=== PATIENT | male | born 2000 | race Caucasian/White ===

== ENCOUNTER 2023-02-10 08:00 | Outpatient (RCR) | payer OTHER, SELFPAY ==
--- NOTE | 2023-02-10 09:45 | BH.NA ---
Physical Data Vital Signs Pulse Rate: 78 Blood Pressure: 149/96 Height/Weight Height: 1.8 m Weight:: 136.078 kg Weight in Pounds: 300.0 lbs Nutritional History Appetite Nutritional Instructions: Describe your appetite:: Good Additional nutritional information:: Client denies change in appetite. Functional Assessment Sleep Pattern Describe any problems with sleeping: Client states he sleeps about 5-6 hours per night. Sensory/Communication Assess Vision Problems Do you have any vision problems?: Glasses Communication Problems Do you have difficulty understanding what people are saying?: No Medical Problems/History Respiratory Conditions Respiratory: Asthma Neurological Conditions Neurological: Other (See comments) (sleep paralysis- states he has had this since high school, stating he has a minor event about once every 3 months that he is able to get himself out of, states he has a minor event during sleep about twice a year) Gastrointestinal Conditions Gastrointestinal: Other (See comments) (acid reflux) Pain Assessment Do you have acute or chronic pain?: No Surgical History Surgical History Have you had any surgeries? If so, list type and date:: Yes (adenoidectomy as a child) Substance Abuse Substance Abuse Please describe substance abuse in the last 30 days:: Client states he has been sober from alcohol for 2 weeks now, stating prior to that he had been drinking alcohol several times per week for several months. Client states he occasionally vapes nicotine. Client denies drug use. Client states he drinks about 4-5 caffeinated drinks per day, coffee/pop and at times energy drinks. Discussed with client the need to lower his caffeine intake. Mental Status Summary Mental Status Significant Findings/Observations on Appearance and Mood:: Client is alert and oriented x 4. Client is casually groomed. Client is cooperative with assessment. Client has fair eye contact. Client's voice has normal rate and volume. Client has appropriate affect. Client makes logical associations and has normal processing. Client denies delusions/hallucinations. Client reports ongoing SI and states I have a safety plan in place, I have safety set up for any methods I could think of. Suicide Assessment Suicidal Ideation Are you currently or have you been suicidal in the past?: Yes Suicidal Intentional Rating Scale (SIRS): Current suicidal thoughts/No plan/Contracts for safety Physician Notification Past Psychiatric History MH Treatment Hx Past Psychiatric Medications:: Celexa- was on for 1 year about 4 years ago Age of first mental health symptoms: Client states he has felt depressed and suicidal all my life growing up in a [employer] cult. Client states he took medication for depression around age [age] for one year. Describe (age, circumstance, etc) any past hospitalizations: None. Client does state about 4 years ago, he had a plan to go into [place] to [place] himself but was stopped when he tried cigarettes that made him sick to his stomach so he went home. Current providers for mental health treatment (counselor, psychiatrist, director case management, etc.): None. Fall Risk Assessment Age Age: Less than 60 Mental Status Mental Status: Willing & able to ask for assistance when needed Physical Status Physical Status: No problems Impairments Impairments: None Elimination Elimination: Continent AND independent Gait or Balance Gait or Balance: Walks independently Hx of Falls History of falls in the past 6 months: No known history Medications/Substances Medications/substances used within the past 24 hours or ordered to administer: None of the medications/substances list above Total Score Total Points:: 0 RN Summary of Impressions Impressions Recommendations Impressions: Psychiatric Issues: 1. Major depressive disorder, recurrent, severe without psychosis 2. Generalized anxiety disorder 3. Social anxiety disorder (F40.11) 4. Rule out high functioning pervasive development disorder 5. Primary support issues 6. Rule out alcohol use disorder (sober from alcohol for 2 weeks) Impression: General Medical Conditions: Discussed BP 149/96 with client. Client states he is planning to follow up with his PCP soon because he hasn't been seen in awhile and states he will follow up with them about his BP. Level of Care How do the client's current symptoms and functional deficits support need for this level of care?: Client was referred to IOP by his mother for mood instability and suicidal ideations. Client states him and his mother left the [employer] about 2 years ago. Client states much of his mental health decline has to do with his previous alevism experience, stating he did not have friends as a kid and was bullied and not able to have his own identity within the [employer]. Client states he has not wanted to be alive for as long as I can remember. Client reports he has a safety contract regarding suicidal thoughts. Client states his mom is his biggest support. Client reports crying episodes, isolation, decreased concentration, and self-harming in the form of hitting himself. IOP will promote gains and prevent further decompensation while providing social support and skills training.
[2023-02-10 11:00] VITALS: BP 149/96; PULSE 78
--- NOTE | 2023-02-10 11:10 | BH.SGPN.GN ---
Behaviors/Verbalizations/Mental Status: [] Eye contact is good. Motor activity is appropriate. Appearance is casual. Speech is Appropriate. Mood is anxious. Affect is congruent. Thoughts are linear and logical. No evidence of psychosis. Client Response/Progress/Benefit: [] Pt was an active participant in group discussions. Attentive during psychoeducation. In small group pt along with peers developed an active plan for their crisis warning signs. Pt identified three crisis warning signs as well as an action plan for each. One crisis warning sign is not engaging in self-care with an actions plan that involved: change clothes, eat a healthy snack, set limits on avoidance behavior, and hold self accountable. Other warning sign was isolation with an action plan that involved: calling friends, ask for help, get out of the house, and engage in a hobby. Benefited from increased awareness of crisis warning signs and by developing crisis intervention strategies. Will continue in IOP to improve daily functioning, increase healthy coping skills, and prevent decompensation.
--- NOTE | 2023-02-10 12:22 | BH.PSY.EVA_ITS ---
Psychiatric Evaluation Initial Evaluation Initial Evaluation: History of Present Illness: [] The patient is a 22-year-old single male with a history of depression, anxiety and sleep paralysis who was referred to the [facility] behavioral health IOP by his mother for worsening symptoms of depression and anxiety. The patient currently lives with his mother and father and gets along okay with them. Mom was present for his initial intake and stated that the family feels that the patient has high functioning autism. The patient states that his mental health symptoms have worsened in the past several years and he feels he has really been depressed most of his life. His symptoms worsened when the family left their [employer] community which the patient feels is a [place] day cult. They were shunted when they left and so he no longer sees most of his father side of the family. The patient states that this community isolated him throughout his childhood and he was treated second class because his father did not really believe in [employer]. Patient states that he was always told that he was not good enough. He currently works at a [employer] for the past year full-time but he is currently seeking [facility] to do the IOP. He had a breakdown 2 weeks ago where he felt outright despair and so decided to do an IOP. For primary support he has his mom and 1 friend. The patient endorses sadness, crying spells, hopelessness, worthlessness. He still enjoys video games and reading. Appetite is okay and weight is stable. His sleep has never been good and had a it has not changed and he sleeps about 6 hours a night and has some initial insomnia. His energy level is low and his concentration is decreased. He endorses guilt, passive thoughts of , severe social anxiety, isolation and constant worry sometimes accompanied by nausea. He denies plan for suicide and admits that a few times a week he may have passive, fleeting suicidal ideation but has no plan. He gave up his 2 guns he own to his mother and he does not know where they are now although he did not come close to thinking about using them. He denies homicidal ideation, hallucinations or delusions or symptoms of bridgett or hypomania ever. He feels he had emotional abuse by the [employer] his whole childhood but denies physical, verbal or other abuse. He also denies panic attacks, OCD, eating disorder or PTSD although he does have some flashbacks and avoidance. He is drinking alcohol more than he used to at 1 bottle of wine 2 days a week and 2 shots a day the other days of the week. Sober from alcohol for 2 weeks. No anger issues or violence ever. Current Psychiatric Medications: [] None Past Psychiatric History: [] No psych admits. No suicide attempts ever. He was has no psych providers now. He was first depressed forever. His first medic ation was Celexa at age 17 and he took it for about 1 year and it helped him somewhat. No other meds ever. He had counseling 1 year ago for few months and it was a little bit helpful. The patient used to self-harm by hitting himself when he was angry but he has not done this for over a year ago and he states he no longer has issues with anger. Substance Use History: [] First used alcohol at age 19 and increase his use 2 months ago to what is noted in the present illness. He has not had any alcohol for the past 2 weeks. No marijuana use and he quit vaping nicotine a few months ago. No drugs and no rehab ever. Allergies: [] No known allergies Medications: [] Omeprazole, [id number] allergy medication, probiotic Past Medical History: [] Asthma, GERD. He had his adenoids out but no other surgeries. Normal sexual function and is heterosexual. Mother is 51 years old and father is 54 years old. He states that his father, grandfather and all the men on my father side have depression. No completed suicides in the family. Maternal uncle is alcoholic and his father side has some alcoholism on it but he is unsure where. Family Psychiatric History: [] See above Personal/Social History: [] He was born and raised in [place] and describes his childhood as I was loved by my mom, emotionally neglected by my dad and ostracized by the [employer] community for not being good enough. He states he was ostracized due to his anxiety issues and social anxiety issues. He has no siblings and was an only child. He denies any physical or sexual abuse ever. He felt isolated at school and was bullied at school and did not try in school. He graduated high school but no college. 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 He identifies as heterosexual and was engaged at age 17 to a girlfriend that he had had for many many years in childhood but she cheated on him with someone else and then spread bad rumors about him in the [employer] community. Legal History: [] No arrests. Has [place] a driver's license. No DUIs. Review of Systems: [] Negative except as noted in the present illness except for occasional reflux from GERD. Vital signs reviewed in the records and in the nurses notes and updated and the patient is deemed medically able to participate in the IOP program. Vital Signs: [] See above Mental Status Examination: [] The patient is a 22-year-old male who is overweight and seen wearing glasses in a stocking And a long gomes. He appears otherwise normal for stated age and is ambulatory with a normal gait. He has no psychomotor agitation or retardation. He is cooperative during the interview but at times has a longer response latency and takes his time to find the answer to the question. Eye contact is decreased often when he is thinking but at times he does make good eye contact. Speech is normal rate and rhythm and fluent with no pressure. Mood is depressed. Affect is constricted to flat. Thought process is goal-directed and organized. Thought content: There is evidence of passive thoughts of and fleeting, passive suicidal ideation on occasion. There is no evidence of plan for suicide, active suicidal ideation, homicidal ideation, hallucinations or delusions. Reality testing is intact. Intelligence is average. Judgment is intact. Insight: Limited but some present. Impulsivity moderate. Laboratory was suggested to be ordered in terms of thyroid and vitamin D but patient has a fear of blood and needle sticks and will think about getting it. The order for the labs was given. Diagnoses: [] 1. Major depressive disorder, recurrent, severe without psychosis 2. Generalized anxiety disorder 3. Social anxiety disorder (F40.11) 4. Rule out high functioning pervasive development disorder 5. Primary support issues 6. Rule out alcohol use disorder (sober from alcohol for 2 weeks) Plan: [] The patient will start the IOP program as the structure, support, education, and group therapy will hopefully prevent worsening of the patient's symptoms that could require hospitalization. He felt safe during the interview and if it anytime he does not feel safe he will let us know or go to the emergency room. Patient is encouraged to decrease alcohol use and stay sober. The patient does not wish to take Celexa again and he agrees to try Trental X and prescription is sent in for this. In addition labs were ordered but the patient is unsure if he will get it as he has a fear of blood and needles. I will see the patient in follow-up in 2 weeks and he will continue to follow-up with his outpatient providers.
--- NOTE | 2023-02-10 12:36 | BH.DR.ITP ---
Initial Treatment Plan Patient Information Visit Information: ADMISSION DATE: EXPECTED LOS: 4-6 weeks Problems/Symptoms Problem #1:: Depression Symptom:: Sadness, hopelessness, worthlessness, low energy, decreased concentration, guilt, passive thoughts of , passive, fleeting suicidal ideation Problem #2:: Anxiety Symptom:: Worry, isolation, avoidance, flashbacks
--- NOTE | 2023-02-10 14:33 | BH.COMM_ITS ---
Communication Note Communication with Client Communication Note: Met with pt to complete initial paperwork. Pt reports no changes since intake assessment. Completed the CSSR-S screening and risk assessment with pt. Hx of one interrupted attempt in which pt had planned to shoot himself in the [place]; however, stopped himself and went home before retrieving his firearm. Hx of chronic passive suicidal thoughts with know specific plan or intent. Shared these are nearly everyday. Pt reports he has given his firearms to his mother and is not aware of where they are. Denies access to other lethal means. Discussed case with Dr. Edwards and pt will be admitted to [facility] level of care with diagnosis of MDD F32.2
--- NOTE | 2023-02-10 14:40 | BH.COMM ---
Communication Note Communication with Client Communication Note: This nurse attempted to get prior authorization for [facility]intell[facility] medication. Information was needed for three medication trials and failures/intolerances for prior authorization, but client has only trialed one medication on list. Discussed with Dr. Daniel and discussed medication replacements and telephone order received for Lexapro 10mg by mouth daily (take 5mg for 3 days and then 10mg per day). [facility] in [place]. This nurse called client at this time to update him on change of medication and instructions for use of Lexapro. Client denied questions at this time.
--- NOTE | 2023-02-11 10:15 | BH.SGPN.GN ---
Behaviors/Verbalizations/Mental Status: []Pt alert and oriented, casually dressed and groomed. Eye contact good. Motor activity appropriate. Speech within normal limits. Affect congruent, mood content and anxious. Thoughts linear, logical, no signs of hallucinations or delusions. Client Response/Progress/Benefit: []Pt was an active participant in group discussions and activity. Attentive during psychoeducation. Pt along with peers were able to identify several negatives on the picture given to the group. Pt and peers also identified positives in the picture and made the connection that finding positives is much more difficult. Interactive discussion on the definition of perspective, how perspective is formed, and why perspective is important in treatment. Pt along with peers also identified that perspective can either motivate and encourage treatment or be a barrier to receiving help. Pt shared today his perspective is more hopeful and optimistic, with some self-doubt as he is new to the IOP tx setting. Pt stated his current perspective is helping him to focus on the importance of addressing his mental health needs and have an open mind going into the therapeutic setting. Will continue IOP tx to enhance coping skill repertoire, improve mood stability, and prevent decompensation. Narrative Note: []
--- NOTE | 2023-02-11 11:17 | BH.SGPN.GN ---
Behaviors/Verbalizations/Mental Status: []Pt alert and oriented, casually dressed and groomed. Eye contact good. Motor activity appropriate. Speech within normal limits. Affect congruent, mood euthymic and anxious. Thoughts linear, logical, no signs of hallucinations or delusions. Client Response/Progress/Benefit: []Pt was attentive and contributed to small group discussion. Pt completed strengths exploration worksheet, identifying creativity, intelligence, and open-mindedness as personal strengths. Pt able to acknowledge how these strengths are helping pt and can continue to help pt in mental health journey. Pt worked with group to identify strategies that can help increase utilization of personal strengths and how to challenge one?s perspective in general. Pt identified wanting to work on look at past accomplishments and moments of resilience to help challenge perspective. Benefited from identifying personal strengths and strategies for enhancing use of identified strengths. Pt to continue IOP tx to promote mood stability, improve daily functioning, and prevent decompensation. ? Narrative Note: []
--- NOTE | 2023-02-11 15:10 | BH.MTP_ITS ---
Master Treatment Plan Patient Information Program Physician:: Dr. Daniel Primary Therapist:: Rosina Moreno, [facility] Psychiatric Diagnoses Psychiatric Diagnoses:: 1. Major depressive disorder, recurrent, severe without psychosis F33.2 2. Generalized anxiety disorder 3. Social anxiety disorder (F40.11) 4. Rule out high functioning pervasive development disorder 5. Primary support issues 6. Rule out alcohol use disorder (sober from alcohol for 2 weeks) Diagnosis Code(s):: F33.2 Estimated LOS Estimated LOS (in weeks):: 6 Problem/Goal #1 Problem/Goal #1 Stated Goal:: Client will reduce depression, feelings of hopelessness, and passive thoughts of . Description of Barriers: Potential barriers include: negative thought patterns, low self worth, low motivation, apathy, and anxious thoughts. Functional Impact: The patient is a 22-year-old single male with a history of depression, anxiety and sleep paralysis who was referred to the [facility] behavioral health IOP by his mother for worsening symptoms of depression and anxiety. Mom was present for his initial intake and stated that the family feels that the patient has high functioning autism. The patient states that his mental health symptoms have worsened in the past several years and he feels he has really been depressed most of his life. His symptoms worsened when the family left their [employer] community which the patient feels is a [place] day cult. They were shunted when they left and so he no longer sees most of his father side of the family. Pt identifies traumatic memories from his time in [employer]. Pt reported having a ?breakdown? two weeks ago where he felt despair and felt like he needed higher level of care due to having passive thoughts of . Currently seeking FMLA from work. The patient endorses sadness, crying spells, hopelessness, worthlessness, guilt, passive thoughts of , severe social anxiety, isolation, and constant worry. Goal Relevant Strengths/Supports: Resilient and willingness to learn. Supportive parents. Objectives Objective #1: Stated Objective: Client will learn and utilize 2-3 healthy coping strategies to manage depressive symptoms. Interventions: Therapist will utilize CBT techniques to assist client with understanding the connection between thoughts, feelings and behaviors. Education will be provided on behavioral activation. Therapist will assist client in learning internal coping strategies to manage depressive symptoms, along with helping client identify triggers. Discharge Criteria: Client will have achieved this goal when can verbalize and has practiced at least 2 healthy coping strategies that successfully manage depressive symptoms. Target Date: 03/24/23 Review Date: 03/10/23 Objective #2: Stated Objective: Identify at least 2-3 negative self-talk messages used to reinforce feelings of worthlessness and replace thoughts with positive messages. Interventions: Therapist will help client identify distorted, negative beliefs about self and replace with more realistic, affirmative messages. Discharge Criteria: Client will have achieved this goal when can verbalize at least 2 negative self-talk messages and effectively replace those thoughts with affirmative messages. Target Date: 03/24/23 Review Date: 03/10/23 Problem/Goal #2 Problem/Goal #2 Stated Goal:: Stabilize anxiety level while increasing ability to function on daily basis. Description of Barriers: Potential barriers include: negative thought patterns, low self worth, low motivation, apathy, and anxious thoughts. Functional Impact: The patient is a 22-year-old single male with a history of depression, anxiety and sleep paralysis who was referred to the [facility] behavioral health IOP by his mother for worsening symptoms of depression and anxiety. Mom was present for his initial intake and stated that the family feels that the patient has high functioning autism. The patient states that his mental health symptoms have worsened in the past several years and he feels he has really been depressed most of his life. His symptoms worsened when the family left their [employer] community which the patient feels is a [employer] [place] day cult. They were shunted when they left and so he no longer sees most of his father side of the family. Pt identifies traumatic memories from his time in [employer]. Pt reported having a ?breakdown? two weeks ago where he felt despair and felt like he needed higher level of care due to having passive thoughts of . Currently seeking FMLA from work. The patient endorses sadness, crying spells, hopelessness, worthlessness, guilt, passive thoughts of , severe social anxiety, isolation, and constant worry. Goal Relevant Strengths/Supports: Resilient and willingness to learn. Supportive parents. Objectives Objective #1: Stated Objective: Client will learn and implement 2-3 calming skills to help manage anxiety symptoms. Interventions: Therapist and group sessions will help client identify physiological warning signs of anxiety, increase awareness of thoughts that increase anxiety, and identify behaviors that reinforce anxious symptoms. Group and individual counseling will teach client calming skills to help manage anxious symptoms. Discharge Criteria: Client will have achieved this goal when can verbalize at least 2 calming skills and reports skills successfully help reduce anxious symptoms. Target Date: 03/24/23 Review Date: 03/10/23 Objective #2: Stated Objective: Verbalize an understanding of the role that cognitive distortions play in excessive irrational worry and persistent anxiety symptoms. Interventions: Therapist and group will provide psychoeducation about distorted thought patterns. Will assist client in analyzing his worries by examining potential distortions and helping client learn how to reframe and/or identify probability of negative expectation occurring. Discharge Criteria: Client will have met this objective when can verbalize at least 2 anxious distortions/biases and reports ability to challenge/reframe thoughts. Target Date: 03/24/23 Review Date: 03/10/23
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
--- NOTE | 2023-02-12 09:05 | BH.SGPN.GN ---
Behaviors/Verbalizations/Mental Status: [] Eye contact is good. Motor activity is appropriate. Appearance is casual. Speech is Appropriate. Mood is anxious. Affect is congruent. Thoughts are linear and logical. No evidence of psychosis. Reviewed daily check in sheet and pt reports 1/5 for suicidal ideations and 0/5 for intent. Client Response/Progress/Benefit: [] pt participated at times during the group discussion. Attentive. Emotion for today is ?on edge and exhausted?. Daily symptom tracker notes 4/5 for anxiety and 1/5 for depression. Mental health win for today is ?getting here?. Decreased motivation due to depression which makes getting up and completing tasks very difficult. Has been primarily managing his mood by isolation. He shared that he spent most of his like ?in a cult? and this significantly impacted her self-esteem and confidence in himself leading to depression and social anxiety. Group was supportive which was beneficial. Limited progress noted however this is pt?s first week in IOP. Will continue in IOP to maintain safety, stabilize mood, increase healthy coping, and prevent decompensation. Narrative Note: []
--- NOTE | 2023-02-12 10:10 | BH.SGPN.GN ---
Behaviors/Verbalizations/Mental Status: []Eye contact is fair. Motor activity is appropriate. Appearance is casual. Speech is Appropriate. Mood is anxious and dysthymic. Affect is congruent. Thoughts are linear and logical. No evidence of psychosis. Client Response/Progress/Benefit: []Pt participated during the group discussion. Attentive during psychoeducation and actively engaged during experiential activity. Participated during interactive discussion on aspects of fixed mindset. Group identified several aspects of fixed mindset which include: inflexible, belief that one cannot grow, absolute thinking, and all of one's skills, traits, and behaviors can't change. Group identified personal examples of fixed thinking in which pt shared personal fixed thoughts as: I won't find anyone else, I'm broken, and things will never change. Benefited from increased understanding of personal fixed mindsets and how they can impact mental health. Will continue in IOP to improve self-worth, increase healthy coping skills, and prevent decompensation.
--- NOTE | 2023-02-12 11:15 | BH.SGPN.GN ---
Behaviors/Verbalizations/Mental Status: []Pt alert and oriented, disheveled appearance. Eye contact good. Motor activity appropriate. Speech within normal limits. Affect congruent, mood euthymic. Thoughts linear, logical, no signs of hallucinations or delusions. Client Response/Progress/Benefit: []Pt was an active participant during activity and discussion AEB providing some input, connecting with peers, as well as taking notes throughout. Pt did well to engage as group worked on identifying characteristics and benefits of adopting a growth mindset. Worked with fellow participants in reframing the example fixed thoughts into growth mindset thoughts. Pt worked on changing own fixed thought of ?I'll get in trouble if I try new things? to growth thought of ?I'm not going to get ostracized for doing new things, it's okay to try.? Benefitted from discussing benefits of growth mindset and brainstorming strategies for prompting growth-mindset. Pt appeared to benefit from working in small groups to challenge own thoughts and help peers. Pt will continue IOP tx to prevent decompensation, increase self-confidence, and combat distorted thinking patterns. Narrative Note: []
--- NOTE | 2023-02-17 09:00 | BH.SGPN.GN ---
Behaviors/Verbalizations/Mental Status: [Patient was alert and oriented, appropriately dressed and groomed. Eye contact was good, motor activity normal, speech within normal limits. Affect congruent, mood lethargic. Thoughts linear, logical, no signs of hallucinations or delusions. Reviewed Patients symptom tracker and the patient reports low in agitation/irritability/anger, moderate in depressed mood and thoughts of suicide, and moderate/severe for anxiety/panic attacks. This is within normal limits for the patient. The patient reports there being no risk in self-harm urges/behaviors or in actual risk of suicide.] Client Response/Progress/Benefit: [Patient was engaged and open to the discussion. Patient reported his mood to be ?Exhausted?. Patient shared his first mental health win is that he went to a wedding over the weekend which is huge for him. He stated he normally is not one to go to big functions like this and it made it harder because he is not close to this side of the family. He stated his mother was a big support. The patient describes his second win is that he is not isolating like he normally does even with all of the pressure he is feeling. The patient said that he wants to feel better therefore he stated he plans to put effort in his mental health treatment. The patient?s stressor is coming to IOP because of it not being in his normal routine and it?s taking him out of his comfort zone. Patient was quiet but actively listened to other members and benefited from the communication in group. Patient will continue with IOP treatment to help develop healthy skills, promote mood stability, and improve distress tolerance.] Narrative Note: []
--- NOTE | 2023-02-17 10:00 | BH.SGPN.GN ---
Behaviors/Verbalizations/Mental Status: [] Eye contact is good. Motor activity is appropriate. Appearance is casual. Speech is Appropriate. Mood is euthymic. Affect is congruent. Thoughts are linear and logical. No evidence of psychosis. Client Response/Progress/Benefit: []Pt engaged participant AEB listening to others, engaging in activity, and providing feedback at times. Attentive during psychoeducation and provided insight into obstacles in the way of mental wellness. Pt shared with group current mental health reality and desired mental health reality. Stated coming to IOP, trying new things, and being open minded as steps he is currently making to get closer to desired reality. Identified barriers to desired reality include: anxiety, past trauma, and low self-worth. Benefited from taking look at current mental health state and obstacles for progress. Pt to continue IOP to improve daily functioning, increase healthy coping, and prevent decompensation.
--- NOTE | 2023-02-17 11:05 | BH.SGPN.GN ---
Behaviors/Verbalizations/Mental Status: []Pt alert and oriented, casually dressed and groomed. Eye contact good. Motor activity appropriate. Speech within normal limits. Affect congruent, mood euthymic. Thoughts linear, logical, no signs of hallucinations or delusions. Client Response/Progress/Benefit: [] Pt was an active participant in group discussions and experiential activity. Attentive during psychoeducation. Pt participated during interactive discussion on strategies to overcome several obstacles to mental wellness including physical anxiety symptoms, PTSD, low self-esteem, and ?little identity.? Pt choose the barrier of low self-worth? to work on this week and identified strategies to incorporate including by challenging myself to look at my good qualities. Benefited from increased awareness of obstacles to mental wellness and strategies to help overcome those obstacles. Will continue in IOP tx to prevent decompensation, increase emotional regulation skills, and improve daily functioning. Narrative Note: []
--- NOTE | 2023-02-19 09:00 | BH.SGPN.GN ---
Behaviors/Verbalizations/Mental Status: [] Eye contact is good. Motor activity is appropriate. Appearance is casual. Speech is Appropriate. Mood is euthymic. Affect is congruent. Thoughts are linear and logical. No evidence of psychosis. Reviewed daily check in sheet and no reports of suicidal ideations or intent. Client Response/Progress/Benefit: [] Pt participated at times during the group discussion. Attentive. Client reported mental health positive as able to get sleep yesterday and relax. Client reported additional mental positive as taking time to appreciate the small things and appreciating other people. Client noted stressor was being sick yesterday but is feeling happy that he is starting to feel better today. Progress noted with improved mood and perspective.. Benefited from group support, encouragement, and feedback. Will continue in IOP to prevent decompensation, build confidence, continue to use healthy coping skills, and improve daily functioning.
--- NOTE | 2023-02-19 09:00 | BH.SGPN.GN ---
Behaviors/Verbalizations/Mental Status: [Patient was alert and oriented, casually dressed and groomed. Eye contact was good, motor activity normal, speech within normal limits. Affect congruent, mood content. Thoughts linear, logical, no signs of hallucinations or delusions. Reviewed Patients symptom tracker and the patient rates all categories within normal limits.] Client Response/Progress/Benefit: [Patient was engaged and open to the discussion. Patient reports his mood to be ?relieved?. Patients first win was that he got to ?finally get some rest?. Patient explained that he does not sleep well in general but has worsened since he had a ?mental break? a few weeks ago. The second win was he took the time to reflect on the positive small things in his life. The patient stated these were things like his bonds with part of his family and his cat. The patient stated his stressor was his stomach gurgling. He was sick the past few days and was nervous he may get sick again. Patient reported that he is not that stressed right now. Patient was interactive and respectful with other group members about their mental wins and stressors. Patient benefited from the discussion by listening to feedback and giving input on her peer?s stressors and mental health wins. Patient will continue with IOP treatment to help develop healthy skills, promote mood stability, and improve distress tolerance.] Narrative Note: []
--- NOTE | 2023-02-19 10:15 | BH.SGPN.GN ---
Behaviors/Verbalizations/Mental Status: [] Eye contact is good. Motor activity is appropriate. Appearance is casual. Speech is Appropriate. Mood is anxious. Affect is congruent. Thoughts are linear and logical. No evidence of psychosis. Client Response/Progress/Benefit: [] Pt did not participate in group discussions. Attentive during psychoeducation. Attentive during group discussion on types of support, benefits of support, and obstacles to utilizing support. Pt reports their primary supports are mother, certain friends, and podcasts. 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 Participated in experiential activity and was able to connect this activity to group topic. Benefited from increased awareness of the benefits and importance of maintaining a balanced support system. Will continue in IOP to prevent decompensation, stabilize mood, and increase healthy coping skills. Narrative Note: []
--- NOTE | 2023-02-19 15:00 | BH.MDN ---
Multi-Disciplinary Note Note 45-min Individual: Time Started:: 11:23 Date: 02/19/23 Purpose of session/treatment goals addressed:: Purpose of session was to address goals 1 and 2 from MTP. Eye Contact:: Fair Motor Activity:: Restless Appearance:: Casual Speech:: Appropriate Mood:: Euthymic Affect:: Congruent Thoughts:: Linear, Logical and No evidence of hallucinations/delusions noted Staff Interventions:: thought challenging, CBT techniques, strengths perspective, goal setting and taught coping skills Client Response:: Client reported he did go to his cousin's wedding over the weekend despite feeling anxious. Client stated he was extremely anxious prior to the wedding but with support from his mom he was able to go to the wedding and stated once he was there enjoyed himself. Client stated he's trying to keep up with day-to-day task but struggles with doing things like laundry and other tasks that require too much energy. Client reported continuing to struggle with low motivation and low energy. Client stated he really wants to work on improving his self worth. Connected with education about the importance of identifying what he does like about himself and identifying what he feels confident about. Client stated he does think that he is kind, easy to get along with, and dependable. Client stated he is confident about his writing but recognizes he doesn't engage in that activity in a long time. Identified homework for the weekend to start accomplishment journal which will help him look at what he is doing versus what he's not doing. Client agreed to start getting back into creative writing and wants to take time to recharge and relax. Risks/Concerns:: Denies suicidal ideation, plan, or intention to date. future oriented. Progress Toward Goals/Plan:: Progress noted with client reporting ability to face anxiety by going to his cousins wedding. Client able to use healthy supports to manage anxiety prior to the social event and reported decreased anxiety once at the wedding. Client reports ability to complete some of his day to day tasks, but struggles with bigger chores/tasks due to low motivation and energy. Client receptive to homework. Client to continue IOP to improve confidence, challenge distortions, and prevent decompensation. Time Stopped:: 12:03
== END 2023-02-20 23:59 ==
LOC: BHIOP 08:00
PROVIDERS: PCP Family Medicine; Visit Provider Psychiatry & Neurology Psychiatry
DX: F33.2 Major depressive disorder, recurrent severe without psychotic features (principal); F41.1 Generalized anxiety disorder; F40.11 Social phobia, generalized
CPT/HCPCS: S9480; 90834; 90853

== ENCOUNTER 2023-02-22 09:18 | Outpatient (RCR) | payer OTHER, SELFPAY ==
[2023-02-21 00:30] VITALS: BP 149/96; PULSE 78
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
--- NOTE | 2023-02-24 09:00 | BH.SGPN.GN ---
Behaviors/Verbalizations/Mental Status: [] Pt alert and oriented, casually dressed and groomed. Eye contact good. Motor activity appropriate. Speech within normal limits. Affect congruent, mood stressed Thoughts linear, logical, no signs of hallucinations or delusions. Reviewed pt?s symptom tracker, no risk for suicidal ideation, plan, or intent 02/24/23 Client Response/Progress/Benefit: []Pt responded well to session, attentive and receptive to feedback. Pt reports feeling stressed this morning as pt has been having issues with his antidepressant medication making pt sick. Pt stated he noticed the medication reduced anxiety, but was making him nauseous every day. Pt scheduled to see Dr. Edwards this week. Pt's mental health wins include journaling last night and not entertaining my negative thoughts. Pt appeared to benefit from reflecting on his application healthy coping skills. Pt will continue IOP tx to promote mood stability, reduce negative thinking patterns, and improve self-care. Narrative Note: []
--- NOTE | 2023-02-24 10:10 | BH.SGPN.GN ---
Behaviors/Verbalizations/Mental Status: [Patient was alert and oriented, casually dressed and groomed. Eye contact good, motor activity normal, speech within normal limits. Affect congruent, mood content. Thoughts linear, logical, no signs of hallucinations or delusions. ] Client Response/Progress/Benefit: [Patient was open and participated in group discussions. Attentive during psychoeducation on stages of change. Participated during the activity. Interactive group discussion on why change is difficult in which group verbalized that change involves the unknown, is scary, leads to uncertainly, makes one feel vulnerable, leads to fear of failure, and triggers the pressure of success. Patient stated that people ?can do more than we think we can? because of self-doubt. Patient benefited from increased awareness of stages of changes and how emotions impact change. Patient will continue with IOP treatment to promote mood stability, improve distress tolerance, and continue to improve functioning.] Narrative Note: []
--- NOTE | 2023-02-24 11:10 | BH.SGPN.GN ---
Behaviors/Verbalizations/Mental Status: []Pt alert and oriented, casually dressed and groomed. Eye contact good. Motor activity appropriate. Speech within normal limits. Affect congruent, mood content. Thoughts linear, logical, no signs of hallucinations or delusions. Client Response/Progress/Benefit: []Pt responded well to session, attentive. Did well to engage in and process activity. Pt worked with group to relate the strategies used to overcome barriers in the activity to managing change in own life. Pt identified wanting to work on improving his self-talk. Shared that this would continue to promote improved mood and self-confidence. Pt identified that scheduling specific time to journal daily wins or positive affirmations and asking his mom to help hold him accountable would aid in pt's ability to follow-through with making this change. Pt will continue IOP tx to further improve mood stability, promote continued identification and challenging of distortions, as well as prevent decompensation. Narrative Note: []
--- NOTE | 2023-02-24 12:00 | PCM.BH.PN ---
Progress Note Progress Note: And history of Present Illness/Interim History: The patient is a 22-year-old single male with a history of depression, anxiety, sleep paralysis and high functioning autism who is seen in follow-up at the [facility] behavioral health IOP. I last saw the patient 2 weeks ago and iced he was started on Lexapro. The patient had severe side effects from the Lexapro and so he discontinued it 2 days ago after the staff called me a. His side effects have decreased greatly since stopping the medication. Per staff he is engaged in participating well in the IOP. He states that he is doing well and enjoying the program and he feels that his symptoms are better and they his mood and anxiety improved on the Lexapro despite the side effects. He has less hopelessness now. He denies any passive thoughts of . He denies any suicidal thoughts in the last week. He feels much more hopeful for the future which is unusual for him. He also denies homicidal ideation, plan for suicide, hallucinations and delusions. Current Psychiatric Medications: [] Lexapro 10 mg: Discontinued after 7 to 10 days due to side effects. Mental Status Examination: [] The patient is a 22-year-old male who is overweight and wears glasses. Since last visit his hair is dyed purple and teal into horizontal stripes on either side of his head. He is ambulatory with a normal gait and has no psychomotor agitation or retardation. He is cooperative and pleasant during the interview. He has no response latency now. Eye contact is good and speech is normal rate and rhythm and fluent with no pressure. Mood is depressed. Affect is constricted. Thought process is goal-directed and organized. Thought content: There is no evidence of passive thoughts of , suicidal ideation, homicidal ideation, hallucinations or delusions. Reality testing is intact. Judgment is intact. Insight Limited but improving. Impulsivity moderate. Diagnoses: [] 1. Major depressive disorder, recurrent, severe without psychosis 2. Generalized anxiety disorder 3. Social anxiety disorder (F40.11) 4. Rule out high functioning pervasive development disorder 5. Primary support issues 6. Rule out alcohol use disorder (sober from alcohol for 3 weeks) Plan: [] The patient will continue the IOP at [facility] as the structure, support, education and group therapy will hopefully prevent worsening of the patient's symptoms and continue his improvement. He felt safe during the interview and if it anytime he does not feel safe he will let us know or go to the emergency room. The patient agrees to try Celexa 10 mg p.o. daily as he did well on Celexa in the past and had no side effects on it. He will continue to follow-up with his outpatient providers and his prescription for Celexa is sent in. I will see him in follow-up in 2 weeks.
--- NOTE | 2023-02-25 09:00 | BH.SGPN.GN ---
Behaviors/Verbalizations/Mental Status: [Patient was alert and oriented, appropriately dressed and groomed. Eye contact was good, motor activity normal, speech within normal limits. Affect congruent, mood content. Thoughts linear, logical, no signs of hallucinations or delusions. Reviewed Patients symptom tracker and the patient reported he is moderate in depressed mood and anxiety/panic attacks. He reported is low for agitation/irritability/anger and thoughts of suicide. And reported that he has no self-harm urges or risk for suicide.] Client Response/Progress/Benefit: [Patient was engaged and open to the discussion. Patient reported his mood to be ?spacey?. Patients first win is that he cleaned off his desk yesterday which is where he likes to read and write. Patients second win is that he has been playing [employer] with his mom. A stressor is that he feels ?gross? because he forgot to brush his teeth before coming to group. Patient was interactive and respectful with other group members about their mental wins and stressors. Patient benefited from the discussion by listening to feedback and giving input on her peer?s stressors and mental health wins. Patient will continue with IOP treatment to help develop healthy skills, promote mood stability, and improve distress tolerance. ] Narrative Note: []
--- NOTE | 2023-02-25 10:10 | BH.SGPN.GN ---
Behaviors/Verbalizations/Mental Status: [] Eye contact is good. Motor activity is appropriate. Appearance is casual. Speech is Appropriate. Mood is euthymic. Affect is congruent. Thoughts are linear and logical. No evidence of psychosis. Client Response/Progress/Benefit: [] Client was an attentive during interactive group discussions by writing notes, asking questions, and sharing when prompted. Attentive during psychoeducation on the six types of boundaries (physical, emotional, intellectual, sexual, time, and material) AEB note-taking. Along with peers contributed to interactive discussion on defining what a boundary is in mental health. Client along with peers identified challenges to setting boundaries which included; fear of other's response, guilt, fear of losing relationships, and not knowing how to. Client along with peers identified the benefits to setting boundaries. Client shared he struggles with setting boundaries because he has had past negative experiences when establishing a boundary in the past. Client benefited from increased awareness and insight on the importance/benefit to setting healthy boundaries. Will continue in IOP to improve daily functioning, increase healthy coping and self-care, and prevent decompensation. Narrative Note: []
--- NOTE | 2023-02-25 11:10 | BH.SGPN.GN ---
Behaviors/Verbalizations/Mental Status: []Pt alert and oriented, casually dressed and groomed. wearing same shirt all week. Eye contact good. Motor activity appropriate. Speech within normal limits. Affect congruent, mood euthymic. Thoughts linear, logical, no signs of hallucinations or delusions. Client Response/Progress/Benefit: []Pt responded well to session, engaged and contributing. Pt attentive during psychoeducation on the different boundary styles. Able to connect impact current boundary styles impact on functioning. Pt was given a handout on strategies for healthy boundary setting. Appeared to benefit from increasing insight to boundary setting and the impacts on mental health. Pt states he struggles with over sharing personal information. Reported he wants to work on setting limits on himself by checking in with the other person in the conversation to make sure it's not just a one sided conversation. Will continue IOP tx to prevent decompensation, improve view of self, and increase healthy coping.
--- NOTE | 2023-02-26 09:00 | BH.SGPN.GN ---
Behaviors/Verbalizations/Mental Status: [ Patient was alert and oriented, appropriately dressed and groomed. Eye contact was good, motor activity normal, speech within normal limits. Affect congruent, mood content. Thoughts linear, logical, no signs of hallucinations or delusions. Reviewed Patients symptom tracker and the patient reports moderate for thoughts of suicide, low for self-harm urges, and zero risk for suicide. ] Client Response/Progress/Benefit: [Patient was engaged and open to the discussion. Patient reported his mood to be ?warm?. The patients first win was he is now engaging fully in a morning routine. The day prior he felt like he was ?spaced out? and forgot to do part of his routine which threw him off. Patients second win was he has been doing self-reflection. He has taken the time to look at the progress he has made and is proud of himself. He can tell a difference in himself and stated he does not ever want to go back to how things were. The patient shared he does not really have a stressor, and everything was calm for once. Therapist asked the patient to explain what he has been doing that he believes has been making a difference. Patient shares he is writing in a journal and adds in his daily wins throughout the day. Patient stated he ?feels like a person again?. Patient was interactive and respectful with other group members about their mental wins and stressors. Patient benefited from the discussion by listening to feedback and giving input on her peer?s stressors and mental health wins. Patient will continue with IOP treatment to help develop healthy skills, promote mood stability, and improve distress tolerance. ] Narrative Note: []
--- NOTE | 2023-02-26 10:12 | BH.SGPN.GN ---
Behaviors/Verbalizations/Mental Status: []Pt alert and oriented, casually dressed and groomed. Eye contact good. Motor activity appropriate. Speech within normal limits. Affect congruent, mood content, euthymic. Thoughts linear, logical, no signs of hallucinations or delusions. Client Response/Progress/Benefit: [] Pt receptive to session AEB contributing to small group discussion, as well as listening attentively to others, and taking notes. Worked with group to brainstorm the positive and negative aspects of stress on physical and mental health. Group did well to identify the benefits of stress as well as the impact of distress on performance, relationships, and mental health. Pt identified their personal top stressors as: physical health, mental health, and workplace changes. Pt seemed to benefit from increased awareness of current stressors and impact stress has on mental health. Recommended to continue IOP tx to increase healthy coping, promote continued mood stability, and prevent decompensation. Narrative Note: []
--- NOTE | 2023-02-26 11:15 | BH.SGPN.GN ---
Behaviors/Verbalizations/Mental Status: []Pt alert and oriented, casually dressed and groomed. Eye contact good. Motor activity appropriate. Speech within normal limits. Affect congruent, mood euthymic. Thoughts linear, logical, no signs of hallucinations or delusions. Client Response/Progress/Benefit: []Pt was an active participant in group discussions and experiential activity. Was able to identify the connection between the experimental activity and utilization of stress management skills. Pt reported feeling at times frustrated during the activity but did well to use breathing and thought challenging to manage her emotions. Attentive during psychoeducation on the 4 A's (Avoid, adapt, alter, accept) of coping with stress as well as strategies to identify stressors in which one has no control, little control, or a great deal of control over. Pt shared plans to utilize the skill of chano to begin to improve his mental health by creating more realistic and kind expectations of himself. Benefited from increased awareness of stress management strategies. Will continue in IOP to prevent decompensation, improve mood stability, and increase consistent skill application. Narrative Note: []
--- NOTE | 2023-02-26 15:53 | BH.MDN_ITS ---
Multi-Disciplinary Note Note 30-min Individual: Time Started:: 11:05 Date: 02/26/23 Purpose of session/treatment goals addressed:: Purpose of session was to address goals 1 and 2 from MTP. Eye Contact:: Fair Motor Activity:: Restless Appearance:: Casual Speech:: Appropriate Mood:: Euthymic Affect:: Full Thoughts:: Linear, Logical and No evidence of hallucinations/delusions noted Staff Interventions:: CBT techniques, mindfulness skills, strengths perspective, goal setting and taught coping skills Client Response:: Client reported he had a fairly positive weekend in which she had time to relax and recharge. 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 Client reported he really enjoyed looking at the things he did get done versus thinking about things he has not done. Client stated it did help build his confidence and view of himself. Client reported he is going to continue working on a comfortable journal because it seems to be helping. Client noted overall his anxiety and depression has significantly decreased. Client reported he believes being connected to others and recognizing that he is not alone has been significantly helpful. Client reported IOP is a source of connection for him and a place where he can openly express how he feels. Client identified he would like to keep focusing on behavior activation and getting himself back into activities he used to enjoy. 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 Client reported it feels different to be excited about doing things again. Risks/Concerns:: Pt continues to report occasional passive thoughts of . Denies active suicidal thoughts, intention or plan. Future oriented. Progress Toward Goals/Plan:: Progress noted with client reporting decreased anxiety and depression. Pt reported excitement over reengaging with activities he used to enjoy like creative writing. Pt is currently off work which could be contributing to why symptoms have significantly improved. Pt i dentifies being in IOP has helped him realize he's not alone. Pt not established with outpatient counseling or psychiatry. Provided pt with phone numbers for outpatient therapist and psychiatrists in the area. Encouraged client to call to establish this week. Pt to continue IOP to increase follow through on goals, improve self-worth, and prevent decompensation. Time Stopped:: 11:35
--- NOTE | 2023-03-03 09:00 | BH.SGPN.GN ---
Behaviors/Verbalizations/Mental Status: [Patient was alert and oriented, casually dressed and groomed. Eye contact was good, motor activity normal, speech within normal limits. Affect congruent, mood depressed. Thoughts linear, logical, no signs of hallucinations or delusions. Reviewed patients mood tracker and the patient reported moderate to severe for depressed mood, moderate for anxiety/panic attacks, and low in agitation/irritability/anger. The patient reported no symptoms in self-harm urges or thoughts/risk of suicide.??] Client Response/Progress/Benefit: [Patient was engaged and open to the discussion. Patients mood was ?depressed?. Patient stated his first win was that he got to hang out with one of his friends. They played video games together and talked about philosophy. The second win was also a stressor for the patient. The patient stated that his family pulled out an old photo album and they went through old pictures of himself when he was younger. The patient stated this gave him an emotional reaction because his parents looked so happy, but he felt that he was a bad son ?up until now?.??Patient was interactive and respectful with other group members about their mental wins and stressors. Patient benefited from the discussion by listening to feedback and giving input on his peer?s stressors and mental health wins. Patient will continue with IOP treatment to help develop healthy skills, promote mood stability, and improve distress tolerance.] Narrative Note: []
--- NOTE | 2023-03-03 11:10 | BH.SGPN.GN ---
Behaviors/Verbalizations/Mental Status: []Pt alert and oriented, casually dressed and groomed. Eye contact good. Motor activity appropriate. Speech within normal limits. Affect congruent, mood euthymic. Thoughts linear, logical, no signs of hallucinations or delusions. Client Response/Progress/Benefit: []Pt was an active participant throughout AEB contributing to group discussion and taking notes. Pt provided input during small group discussion on strategies to combat each factor maintaining adverse nutritional cycles. Worked with group to identify ways to foster more mindful nutritional choices. Each group participant identified one small step they could take today to begin establishing mental wellness promoting nutritional choices. Pt shared plans to?reduce his sugar intake by cutting out at least one pop a day. Appeared to benefit from gaining insight into mental wellness centered nutrition and identifying personal steps Pt can take to support own nutritional psychology. Recommended continued IOP tx to reduce negative thinking patterns, improve self-esteem, and reduce isolation.? Narrative Note: []
--- NOTE | 2023-03-03 14:51 | BH.MTP_ITS ---
Treatment Plan Review Demographics Date of Admission:: 02/10/23 Date of Treatment Plan Review:: 03/03/23 Admitting Diagnoses:: 1. Major depressive disorder, recurrent, severe without psychosis F33.2 2. Generalized anxiety disorder 3. Social anxiety disorder (F40.11) 4. Rule out high functioning pervasive development disorder 5. Primary support issues 6. Rule out alcohol use disorder (sober from alcohol for 2 weeks) Current Diagnoses:: 1. Major depressive disorder, recurrent, severe without psychosis F33.2 2. Generalized anxiety disorder 3. Social anxiety disorder (F40.11) 4. Rule out high functioning pervasive development disorder 5. Primary support issues 6. Rule out alcohol use disorder (sober from alcohol for 2 weeks) Patient Status Patient's Response to Treatment:: Pt responding well to treatment AEB consistent attendance. Client engages in group therapy sessions and individual sessions. Does struggle with consistent follow through on homework. Status of Current Problems and Symptoms: Client reporting improved mood and ability to manage anxiety. Client still has days in which he reports down, depressed mood, but has been able to use skills to manage those moods more effectively. Client continues to report negative self-deprecating thoughts and is ready to start learning how to challenge negative thoughts to improve view of self. 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 Client is starting to note improvement in these areas, but ongoing work needed. Progress Problem #1: Problem Name:: Depression Status of Goals:: Obj 1 - met, ongoing work encouraged. Client can identify healthy coping skills like opposite action, changing environment, socializing, and engaging in hobbies. Client starting to show more utilization of this skills. Obj 2 - not met. First few weeks have been focused on building healthy coping skills and improving mood. Will start to focus more on identifying thought patterns that impact mood. Team Recommendations:: Team recommends continue current goals and objectives with greater focus on identifying distorted/negative thoughts and teaching client how to reframe/challenge thoughts on own. Recommended to continue to work with client on building confidence. Problem #2: Problem Name:: Anxiety Status of Goals:: obj 1 - not met. Client is able to identify calming skills like belly breathing, grounding, and meditation. Does struggle with consistent implementation of skills. Client's DSM 5 scores at review indicate a 33% decrease in anxiety. Continues to report mild anxious symptoms. Obj 2 - not met. client is starting to gain awareness of distorted thoughts, but needs to practice and learn how to challenge/reframe distortions independently. Team Recommendations:: Team recommends continue current goals and objectives with greater focus on identifying distorted/negative thoughts and teaching client how to reframe/challenge thoughts on own. Recommended to continue to work with client on building confidence. Recommended to continue to work with client on building confidence.
--- NOTE | 2023-03-03 15:33 | BH.MDN_ITS ---
Multi-Disciplinary Note Note 30-min Individual: Time Started:: 10:12 Date: 03/03/23 Purpose of session/treatment goals addressed:: Purpose of session was to address goals 1 and 2 from MTP. Eye Contact:: Good Motor Activity:: Restless Appearance:: Casual Speech:: Appropriate Mood:: Dysthymic Affect:: Constricted Thoughts:: Linear, Logical and No evidence of hallucinations/delusions noted Staff Interventions:: thought challenging, psychoeducation on: (thought log), CBT techniques, strengths perspective, goal setting and taught coping skills Client Response:: Client reported he has been struggling after being triggered when his family was looking at pictures from his childhood. Client stated it brought back memories of how he acted towards his parents. Client reported there was a time period in which he told his dad that he wasn't his d ad. Client stated he started to have increased negative thinking last night telling himself that he is a bad son. Client reported he pushed his parents away and stayed disconnected from them when he was younger. Client stated his parents don't hold the same beliefs about him and they have forgiven him for the things he said/did as a kid. Client receptive to thought challenge assistance from therapist. Recognizes he is judging himself from a much older perspective now and has better insight. Client agreed beating himself up over choices when he was a child isn't making him feel better and contributes to feeling depressed. Therapist encouraged client to think about what he can do in the here and now to improve connection with his parents. Client stated he did complete his homework from last session was completing all his laundry. Reported feels much better to see clean laundry. Client noted treatment progress with improved productivity at work, improved anxiety management, and decreased depression. Client stated he would like to work more on negative thinking because his thoughts impact his view of self and contributes to low self esteem. Risks/Concerns:: Denies suicidal thoughts, intention or plan. Progress Toward Goals/Plan:: Progress noted with client reporting improved functioning at work, improved anxiety management skills, decreased depression, and use of opposite action over the weekend. Client reports recent down mood triggered by past. Client open to starting thought log to work on challenging/reframing negative thoughts. Client continues to report low self- esteem. Client to continue IOP to increase healthy coping, challenge distortions, improve view of self, and prevent decompensation. Time Stopped:: 10:45
--- NOTE | 2023-03-04 09:00 | BH.SGPN.GN ---
Behaviors/Verbalizations/Mental Status: [] Eye contact is good. Motor activity is appropriate. Appearance is casual. Speech is Appropriate. Mood is anxious. Affect is congruent. Thoughts are linear and logical. No evidence of psychosis. Reviewed daily check in sheet and no reports of suicidal ideations or intent. Client Response/Progress/Benefit: [] Pt participated at times during the group discussion. Attentive. Daily symptom tracker notes 07/26 for depression and anxiety. States I'm coming our of my depressive episode. States that he is anxious this AM however this is mostly likely due to mistakenly drinking tea with high amounts of caffeine this AM. States that after Nutritional Psychology group yesterday he has decided to make some dietary changes to improve his mental health. Mental health wins include spending time with his parents. Progress noted per pt report. Benefited from group support, encouragement, and feedback. Will continue in IOP to prevent decompensation, stablize mood, increase healthy coping, and improve functioning. Narrative Note: []
--- NOTE | 2023-03-04 10:05 | BH.SGPN.GN ---
Behaviors/Verbalizations/Mental Status: [] Eye contact is good. Motor activity is appropriate. Appearance is casual. Speech is Appropriate. Mood is euthymic. Affect is congruent. Thoughts are linear and logical. No evidence of psychosis. Client Response/Progress/Benefit: [] Client connected with topic of Anxiety and participated throughout, providing input and taking notes. Attentive during psychoeducation on different anxiety disorders and participated throughout interactive discussion defining anxiety and identifying cognitive and physiological symptoms of anxiety. Client discussed how it is important to expose yourself to things that are making you anxious so you can overcome them and your fear about them. Common physical and cognitive symptoms identified by group included: ?what if thoughts?, ?fear of failure?, negative self-talk, feeling nauseous, shaky, and hot. Client identified shutting down and isolating as their safety behaviors, Benefited from increased awareness and insight on anxiety and its impact. Plan is to continue in IOP to increase overall functioning, increase consistency of healthy coping and thought challenge skills, and practice self care. Narrative Note: []
--- NOTE | 2023-03-04 11:11 | BH.SGPN.GN ---
Behaviors/Verbalizations/Mental Status: [] Eye contact is good. Motor activity is appropriate. Appearance is casual. Speech is Appropriate. Mood is euthymic. Affect is congruent. Thoughts are linear and logical. No evidence of psychosis. Client Response/Progress/Benefit: [] Client was an active participant in group discussion and providing good insight to peers. Attentive during psychoeducation on mindfulness coping skills and their impact on mental health wellness. The group worked together to brainstorm soothing and mind-based mindfulness strategies to improve anxiety management. The group practiced guided meditation and discussed its benefit. Client shared he plans to utilize guided imagery and watching sparking lights as strategies to manage anxiety. Client seemed to benefit from increased repertoire of anxiety reduction skills. Client will continue IOP tx to prevent decompensation, improve overall functioning, and gain healthy core beliefs. Narrative Note: []
--- NOTE | 2023-03-05 09:00 | BH.SGPN.GN ---
Behaviors/Verbalizations/Mental Status: [Patient was alert and oriented, appropriately dressed and groomed. Eye contact was good, motor activity normal, speech within normal limits. Affect congruent, mood tired. Thoughts linear, logical, no signs of hallucinations or delusions. Reviewed Patients symptom tracker and the patient reports moderate to severe in anxiety/panic attacks and low in depressed mood and agitation/irritability/anger. Patient does not report any symptoms in self-harm urges or thoughts/risk of suicide. ] Client Response/Progress/Benefit: [ Patient was engaged and open to the discussion. Patient reported his mood to be ?drained?. The patient stated his first win was that he was able to do his laundry yesterday. Patient stated he finds it hard to do his laundry sometimes but was able to do it. The second win was that he has switched out his caffeinated tea with an un-caffeinated tea. Patient stated he is trying to limit his caffeine intake. A stressor was that he did not get a lot of sleep last night and was feeling exhausted. Patient was interactive and respectful with other group members about their mental wins and stressors. Patient benefited from the discussion by listening to feedback and giving input on his peer?s stressors and mental health wins. Patient will continue with IOP treatment to help develop healthy skills, promote mood stability, and improve distress tolerance. ] Narrative Note: []
--- NOTE | 2023-03-05 10:20 | BH.SGPN.GN ---
Behaviors/Verbalizations/Mental Status: [] Eye contact is fair. Motor activity is appropriate. Appearance is casual. Speech is Appropriate. Mood is depressed. Affect is congruent. Thoughts are linear and logical. No evidence of psychosis. Client Response/Progress/Benefit: [] Pt was an active participant in group discussions AEB listening attentively to others and providing feedback at times. Participated in and was engaged during experiential activity. Able to relate activity to group topic of FOF. Engaged during interactive discussion on what failure means to the group in which peers identified and defined failure. Group was able to identify impact of fear of failure on mental health. Attentive during interactive discussion on the role that FOF plays in mental wellness, depression, anxiety, and growth. Benefited from increased awareness of how the role that FOF plays in mental health and decision-making. Will continue in IOP to increase healthy coping,prevent decompensation, and improve functioning. Narrative Note: []
--- NOTE | 2023-03-05 11:15 | BH.SGPN.GN ---
Behaviors/Verbalizations/Mental Status: []Pt alert and oriented, casually dressed and groomed. Eye contact good. Motor activity appropriate. Speech within normal limits. Affect congruent, mood euthymic. Thoughts linear, logical, no signs of hallucinations or delusions. Client Response/Progress/Benefit: [] Pt responded well to session, engaged in the experiential activity and attentive throughout group processing. Pt reported fear of failure has kept Pt from learning new hobbies/interest like how to play the [employer]. Pt completed fear of failure worksheet and was able to identify thoughts and behaviors that reinforce personal fear of failure including: negative thinking, avoidance, and lack of experience. Pt participated in group discussion regarding strategies to overcome fear of failure. Identified wanting to work on starting to improve positive self-talk and use of opposite action. Appeared to benefit from increased knowledge of strategies to combat fear of failure and gaining self-awareness. Pt will continue IOP tx to improve mood stability, improve ability to consistently challenge negative thoughts, and prevent decompensation. Narrative Note: []
--- NOTE | 2023-03-10 09:00 | BH.SGPN.GN ---
Behaviors/Verbalizations/Mental Status: [ Patient was alert and oriented, appropriately dressed and groomed. Eye contact was good, motor activity normal, speech within normal limits. Affect congruent, mood content. Thoughts linear, logical, no signs of hallucinations or delusions. Reviewed Patients symptom tracker and the patient reports low to moderate in depressed mood and anxiety/panic attacks, and low in agitation/irritability/anger.] Client Response/Progress/Benefit: [Patient was engaged and open to the discussion. Patient reported her mood to be ?happy?. The patients first win was that he rearranged his room with his parents and put a new entertainment center in it. He said this was an early birthday present for him but that changing his room up felt nice. The second win was that he feels he is finally enjoying his life now. He stated he understood that every day will not be ?awesome? but that he also has skills now to cope with those days. Patient stated he did not currently have a stressor except that there were a lot of people in group today which made him a little nervous. Patient was interactive and respectful with other group members about their mental wins and stressors. Patient benefited from the discussion by listening to feedback and giving input on her peer?s stressors and mental health wins. Patient will continue with IOP treatment to help develop healthy skills, promote mood stability, and practice coping skills for anxiety. ] Narrative Note: []
--- NOTE | 2023-03-10 10:20 | BH.SGPN.GN ---
Behaviors/Verbalizations/Mental Status: []Pt alert and oriented, casually dressed and groomed. Eye contact good. Motor activity appropriate. Speech within normal limits. Affect congruent, mood euthymic. Thoughts linear, logical, no signs of hallucinations or delusions. Client Response/Progress/Benefit: [] Pt responded well to session AEB contributing to small group discussion, taking notes, and listening attentively to others. Group discussed the benefits of managed anger and anger as a secondary emotion. Pt shared perspective on personal benefits of anger as motivated for change and communication. Pt completed worksheet on anger triggers and personal warning signs of anger. Pt shared when he does not manage his anger well he can hurt others with words. Appeared to benefit from increased knowledge of the anger cycle as well as personal triggers. Will continue IOP tx to promote mood stability, reduce anxiety, and improve daily functioning. Narrative Note: []
--- NOTE | 2023-03-10 11:15 | BH.SGPN.GN ---
Behaviors/Verbalizations/Mental Status: []Client alert and oriented, casually dressed and groomed. Eye contact good. Motor activity appropriate. Speech within normal limits. Affect congruent, mood euthymic. Thoughts linear, logical, no signs of hallucinations or delusions. Client Response/Progress/Benefit: []Pt was attentive throughout AEB contributing at times to small group discussion and self-reflection. Group finished processing cues to anger worksheet. Pt completed personal anger cycle. Identified triggering event, negative thoughts, emotional response, physical symptoms, and behavioral response. Pt attentive as group brainstormed healthy coping skills for better managing anger which included: problem solving, walking/exercise, taking a break, grounding tools, reflection, and journaling. Pt worked in small groups to identify healthy coping skills/strategies to manage anger. Pt identified connected with taking a breath before responding. Pt appeared to benefit from identifying different techniques to manage anger as well as gaining awareness of potential consequences of unmanaged anger. Will continue IOP tx to challenge distortions, continue utilization of healthy coping skills, and prevent decompensation.
--- NOTE | 2023-03-10 12:03 | PCM.BH.PN ---
Progress Note Progress Note: And history of Present Illness/Interim History: The patient is a 22-year-old single male with a history of depression, anxiety, sleep paralysis and high functioning autism who is seen in follow-up at the [facility] behavioral health IOP. I last saw the patient 2 weeks ago and at that time Lexapro was discontinued due to side effects and Celexa was started as the patient tolerated it in the past. The patient states that he is tolerating the Celexa well and denies any side effects on it. He is feeling much better and feels his anxiety is also improving. He is functioning better at home and at the IOP. His mood is less depressed. He denies any hopelessness in the last week. He remains engaged in the program and consistent in his attendance. He denies passive thoughts of , suicidal ideation, plan for suicide, homicidal ideation, hallucinations or delusions. He continues to feel much more hopeful for the future. Current Psychiatric Medications: [] Celexa 10 mg p.o. daily (x2 weeks). Mental Status Examination: [] The patient is a 22-year-old male who is overweight and wearing glasses and still has his hair dyed with purple and teal horizontal stripes on either side of his head. He is cooperative and pleasant during the interview. He has no psychomotor agitation or retardation and is ambulatory with a normal gait. Speech is normal rate and rhythm and fluent with no pressure. Eye contact is good. Mood is mildly depressed. Affect is full and normal. Thought process is goal-directed and organized. Thought content: The patient is hopeful for the future. There is no evidence of passive thoughts of , suicidal ideation, homicidal ideation, hallucinations or delusions. Reality testing is intact. Judgment is intact. Insight is fair. Impulsivity is moderate. Diagnoses: [] 1. Major depressive disorder, recurrent, severe without psychosis (resolving) 2. Generalized anxiety disorder 3. Social anxiety disorder (F40.11) 4. 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 Primary support issues 6. Rule out alcohol use disorder (sober from alcohol for 5 weeks) Plan: [] The patient will continue the IOP at [facility] as the structure, support, education and group therapy will hopefully prevent worsening of the patient's symptoms. He felt safe during the interview and if it anytime he does not feel safe he will let us know or go to the emergency room. No medication changes were made today as the Celexa was started only 2 weeks ago. He will continue to follow-up with his outpatient providers and I will see the patient in follow-up in several weeks.
--- NOTE | 2023-03-11 14:03 | BH.MDN_ITS ---
Multi-Disciplinary Note Note 60-min Individual: Time Started:: 10:05 Date: 03/17/23 Purpose of session/treatment goals addressed:: Purpose of session was to address goals 1 and 2 from MTP. Eye Contact:: Good Motor Activity:: Appropriate Appearance:: Casual Speech:: Appropriate Mood:: Euthymic Affect:: Congruent Thoughts:: Linear, Logical and No evidence of hallucinations/delusions noted Staff Interventions:: thought challenging (worked together to challenge thoughts put on his thought log), CBT techniques, discharge planning and strengths perspective Client Response:: Client reported feeling down last night because was playing a new video game that reminded him of his aunt that he doesn't get to see anymore because she is still a [employer] and has disowned client and family due to leaving the [employer]. Client reported the video game reminded him of her because she used to play video games with him was he was younger. Client stated he is feeling better about the situation this morning. Client reported he completed homework from last individual session of writing down negative thoughts on his thought log. Client worked with therapist to challenge/reframe thoughts. Client struggled with challenging the thought that he doesn't deserve relationships because he doesn't function well independently. Client stated he would like to be in a relationship but doesn't believe he has a lot to offer and that the other person would have to take care of him. Client reported who would want to sign up for that. Client continued to explore this belief set. Client stated he doesn't like to go to public places like movie theaters and restaurants, which he stated would then hold back a potential partner. Client reported being unsure if he wants to work on being able to be in public places because he kind of is okay with staying home. Client reported he thinks that being potentially autistic plays a role in his difficulty with being in public places and doesn't know if he can every function well. Therapist challenged this perspective helping client see that many people with various mental health diagnoses lead successful lives, including individuals that have a autism diagnosis. Therapist cautioned client to be be careful when making broad conclusions about his ability to function and have a successful life based on a diagnosis. Client agreeable to continue working on challenging negative/distorted thoughts. Risks/Concerns:: Denies suicidal ideation, plan, or intention to date. Progress Toward Goals/Plan:: Progress noted with client reporting improved mood, ability to overcome down mood last night when triggered by the past, and reporting continued improved functioning at work. Client stated he recently notes slight increase in anxiety, but has been implementing tools and strategies to help. Plan is for client to discharge from IOP in two weeks. Client agrees with plan, feels like he is in a much better mental health state when compared to several weeks ago. Client to continue IOP to maintain progress, continue challenging distortions, and prevent decompensation. Time Stopped:: 10:55
--- NOTE | 2023-03-12 09:00 | BH.SGPN.GN ---
Behaviors/Verbalizations/Mental Status: [ Patient was alert and oriented, appropriately dressed and groomed. Eye contact was good, motor activity normal, speech within normal limits. Affect congruent, mood content. Thoughts linear, logical, no signs of hallucinations or delusions. Reviewed Patients symptom tracker and the patient reports low to moderate in depressed mood, anxiety/panic attacks, and agitation/irritability/anger.] Client Response/Progress/Benefit: [ Patient was engaged and open to the discussion. Patient reported his mood to be ?excited, tired, and a little sad?. Patient stated his first win was that although he was not feeling well yesterday, he finally got his dishes done that he had been putting off. Patients second win was that he got to play ?Dr. Lopez? with his mom yesterday. He stated this is a way that him and his mother spend time together. Patient reported he has two stressors. The first was that he is struggling with his insomnia and does not know how to cope with it. The group gave him some feed back on things he could do to manage his sleep better. The second stress is what was making him kind of sad. A new game released today that he used to play with his aunt when he was still apart of the [employer] and since his family left, they can no longer speak. He stated he has processed this when he found out about this game but now that its here, he feels ?a little sad? about it again. Patient was interactive and respectful with other group members about their mental wins and stressors. Patient benefited from the discussion by listening to feedback and giving input on his peer?s stressors and mental health wins. Patient will continue with IOP treatment to help develop healthy skills, promote mood stability, and improve distress tolerance. ] Narrative Note: []
--- NOTE | 2023-03-12 11:10 | BH.SGPN.GN ---
Behaviors/Verbalizations/Mental Status: [] Client alert and oriented, neatly dressed and groomed. Eye contact good. Motor activity appropriate. Speech within normal limits. Affect congruent, mood euthymic. Thoughts linear, logical, no signs of hallucinations or delusions. Client Response/Progress/Benefit: [] Client engaged participant AEB completing self-assessment worksheet and providing input throughout discussion. Client completed worksheet identifying current self-care practices and what self-care activities client wants to start using. Client selected financial self-care to begin practicing more consistently. Client plans to do this by sticking to a financial budget and be more mindful about what's coming out of his bank account. Appeared to benefit from completing the self-care evaluation and gaining insights into current self-care practices, as well as identifying areas in which Client would like to improve upon. Client will continue IOP tx to prevent decompensation, increase emotional regulation skills, and improve daily functioning. Narrative Note: []
--- NOTE | 2023-03-17 09:00 | BH.SGPN.GN ---
Behaviors/Verbalizations/Mental Status: [] Eye contact is good. Motor activity is appropriate. Appearance is casual. Speech is Appropriate. Mood is anxious. Affect is congruent. Thoughts are linear and logical. No evidence of psychosis. Reviewed daily check in sheet and no reports of suicidal ideations or intent. Client Response/Progress/Benefit: [] Pt was an active participant in group discussions. Attentive. Daily symptom tracker notes 2/5 for anxiety and 1/5 for depression/irritability. Mental health wins include reconnecting with his family. He was very anxious about recent family event and worked through negative thoughts and expectations. He attended, engaged, and had a beneficial experience. According to pt in the past week he has been managing his emotions better. I'm processing through things. Believes that groups and education have helped out. More confidence in his ability to work through depression. Emotion for today is optimistic. progress noted per pt report. Beneifted from group support, encouragement, and feedback. Will continue in IOP to prevent decompensation, stabilize mood, and increase healthy coping. Narrative Note: []
--- NOTE | 2023-03-17 11:10 | BH.SGPN.GN ---
Behaviors/Verbalizations/Mental Status: []Pt alert and oriented, casually dressed, appropriately groomed. Eye contact good. Motor activity appropriate. Speech within normal limits, mostly quiet. Affect congruent, mood euthymic. Thoughts linear, logical, no signs of hallucinations or delusions. Client Response/Progress/Benefit: [] Pt was engaged during discussion and willing to complete the worksheet challenging them to develop a personal SMART goal. Pt chose the goal of getting more specific with his accomplishment log each night he journals. Pt stated this will benefit pt by building self-esteem and giving pt evidence against his negative self-talk. Pt identified barriers which included hard time giving self credit, memory issues, and feeling that the positives are insignificant. Identified solutions such as using opposite action and positive self-talk. Pt receptive to identifying solutions for these barriers and willing to begin working on this goal. Benefited from this group by developing a short-term SMART goal related to mental health. Will continue IOP tx to promote mood stability, reduce negative thinking patterns, and further increase self-confidence. Narrative Note: []
--- NOTE | 2023-03-18 09:00 | BH.SGPN.GN ---
Behaviors/Verbalizations/Mental Status: [Patient was alert and oriented, appropriately dressed and groomed. Eye contact was good, motor activity normal, speech within normal limits. Affect congruent, mood content. Thoughts linear, logical, no signs of hallucinations or delusions. Reviewed Patients symptom tracker and the patient reports depressed mood, anxiety/panic attacks, agitation/irritability/anger, self-harm urges, and thoughts/risk of suicide within normal limits.] Client Response/Progress/Benefit: [Patient was engaged and open to the discussion. 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 The patients stressor is that his discharge date is next week, and his schedule will be changing again which will take some adjusting to. Patient was interactive and respectful with other group members about their mental wins and stressors. Patient benefited from the discussion by listening to feedback and giving input on her peer?s stressors and mental health wins. Patient will continue with IOP treatment to help develop healthy skills, promote mood stability, and improve distress tolerance. ] Narrative Note: []
--- NOTE | 2023-03-18 10:17 | BH.SGPN.GN ---
Behaviors/Verbalizations/Mental Status: []Pt alert and oriented, casually dressed and groomed. Eye contact good. Motor activity appropriate. Speech within normal limits. Affect congruent, mood euthymic. Thoughts linear, logical, no signs of hallucinations or delusions. Client Response/Progress/Benefit: [] Pt was an active participant AEB providing input and was actively taking notes. Connected with the topic of pitfalls and listened to group discussion on internal and external barriers that prevent from choosing a healthier path to mental wellness. Group worked together to identify examples of personal internal pitfalls and pt identified theirs as self-doubt, fear of success, and using unhealthy coping skills at times. Pt benefited from group as Pt learned to better identify and normalize potential barriers to improving mental health symptoms. Pt also gained awareness of the difference between external triggers and self-sabotaging behaviors. Pt will continue IOP tx to promote gains, reduce negative thinking patterns, and improve daily functioning. ??? Narrative Note: []
--- NOTE | 2023-03-18 11:15 | BH.SGPN.GN ---
Behaviors/Verbalizations/Mental Status: []Pt alert and oriented, casually dressed and groomed. Eye contact good. Motor activity appropriate. Speech within normal limits. Affect congruent. Mood euthymic. Thoughts linear, logical, no signs of hallucinations or delusions. Client Response/Progress/Benefit: []Pt was an active participant AEB contribution to discussion, taking notes, and willingness to engage in group activity. Connected with the topic of pitfalls and listened to group discussion on internal and external barriers that prevent from choosing a healthier path to mental wellness. Group worked together to identify examples of internal pitfalls presented in the activity as well as strategies for managing or preventing these. Pt identified personal pitfalls to include: anxiety, negative coping skills, negative self-talk. Pt identified wanting to work on pitfall of self-talk by practicing positive self-talk and starting an accomplishment journal. Benefited from group as pt learned to better identify and normalize potential barriers to improving mental health symptoms. Pt to continue IOP to challenge distorted thoughts, increase healthy coping, and prevent decompensation. Narrative Note: []
--- NOTE | 2023-03-19 10:05 | BH.SGPN.GN ---
Behaviors/Verbalizations/Mental Status: [] Eye contact is good. Motor activity is appropriate. Appearance is casual. Speech is Appropriate. Mood is euthymic. Affect is congruent. Thoughts are linear and logical. No evidence of psychosis. Client Response/Progress/Benefit: []Pt engaged participant AEB listening to others, engaging in activity, and providing feedback at times. Attentive during psychoeducation and provided insight into obstacles in the way of mental wellness. Pt shared with group current mental health reality and desired mental health reality. Stated taking medications consistently as one step he is currently making to get closer to desired reality. Identified barriers to desired reality include: Low motivation, work stress, anxious thoughts, and self doubt. Benefited from taking look at current mental health state and obstacles for progress. Pt to continue IOP to improve view of self, improve confidence, and continue utilizing healthy coping skills.
--- NOTE | 2023-03-19 10:10 | BH.SGPN.GN ---
Behaviors/Verbalizations/Mental Status: []Eye contact is good. Motor activity is appropriate. Appearance is casual. Speech is Appropriate. Mood is euthymic. Affect is congruent. Thoughts are linear and logical. No evidence of psychosis. Client Response/Progress/Benefit: []Pt was an active participant in group discussion. Attentive during psychoeducation on SMART goals. Participated in experiential activity. Engaged during interactive discussion on the benefits of setting goals which group identified as; increase self-worth, increase confidence, can motivate us, can lead to personal growth, and can give one a sense of purpose. Participated during interactive discussion on possible obstacles to obtaining goals and pt self-identified barriers as procrastinating and anxiety about the future?. Benefited from increased understanding of benefits of goals, obstacles to obtaining goals, and methods for setting appropriate goals (SMART goals). Will continue in IOP to prevent decompensation, maintain mood stability, and further improve current functioning. Narrative Note: []
--- NOTE | 2023-03-19 11:10 | BH.SGPN.GN ---
Behaviors/Verbalizations/Mental Status: []Eye contact is good. Motor activity is appropriate. Appearance is casual. Speech is Appropriate. Mood is euthymmic. Affect is congruent. Thoughts are linear and logical. No evidence of psychosis. Client Response/Progress/Benefit: []Pt responded well to session, actively engaged throughout. Provided input during discussion on what potential internal barriers may be keeping them from reaching their desired reality. Pt was an active participant throughout the interactive activity in which group members problem solved the various internal barriers each pt reports struggling with. Pt identified wanting to work on personal barrier of ?fear of leaving the house? and shared plans to ask supports to go with him as a means of overcoming this barrier. Pt appeared to benefit from brainstorming skills to overcome internal barriers, as well as support of the group. Will continue in IOP tx to prevent decompensation, promote skill application, and further encourage use of behavior activation skills.? Narrative Note: []
--- NOTE | 2023-03-19 12:00 | BH.MDN ---
Multi-Disciplinary Note Note 30-min Individual: Time Started:: 09:18 Date: 03/19/23 Purpose of session/treatment goals addressed:: Purpose of session was to address goals 1 and 2 from MTP and start discharge discussion. Eye Contact:: Fair Motor Activity:: Appropriate Appearance:: Casual Speech:: Appropriate Mood:: Euthymic and Anxious Affect:: Congruent Thoughts:: Linear, Logical and No evidence of hallucinations/delusions noted Staff Interventions:: CBT techniques, discharge planning, strengths perspective and goal setting Client Response:: Client reported he completed goal from previous session of scheduling a appointment for outpatient counseling. Client stated he has his first appointment [facility] on April 01. Client stated he feels like he is continuing to improve with his mood and functioning at home. Client stated feeling slightly anxious about discharging from IOP next week because he is going to really enjoy being in group and having support. Client recognizes that he has made a lot of treatment progress since starting IOP and will be important for him to reflect on maintenance. Therapist encouraged client to start to think about skills and strategies that he has learned and utilized throughout IOP that has helped improve his mood and outlook on life. Therapist explained the importance of having a maintenance plan and report stated next week they will complete a maintenance plan together. Client receptive to starting to reflect on maintenance items that will help him maintain treatment progress and starting IOP. Client reported continued use of healthy coping skills and utilizes opposite action to help him get tasks done at home. Risks/Concerns:: Denies suicide ideation, plan, or intention. Future oriented. Progress Toward Goals/Plan:: Progress noted with client reporting continued to mood improvement and starting to function more at home. 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 Client expressing improved view of self and confidence. Plan is for client to discharge from [facility] next week. Client is to start to identify items to put on his maintenance plan. Time Stopped:: 09:50
== END 2023-03-23 23:59 ==
LOC: BHIOP 09:18
PROVIDERS: PCP Family Medicine; Visit Provider Psychiatry & Neurology Psychiatry
DX: F33.2 Major depressive disorder, recurrent severe without psychotic features (principal); F41.1 Generalized anxiety disorder; F40.11 Social phobia, generalized
CPT/HCPCS: S9480; 90832; 90834; 90837; 90853

== ENCOUNTER 2023-03-24 06:47 | Outpatient (RCR) | payer OTHER, SELFPAY ==
[2023-03-24 00:19] VITALS: BP 149/96; PULSE 78
--- NOTE | 2023-03-24 09:00 | BH.SGPN.GN ---
Behaviors/Verbalizations/Mental Status: [Patient was alert and oriented, appropriately dressed and groomed. Eye contact was good, motor activity normal, speech within normal limits. Affect congruent, mood content. Thoughts linear, logical, no signs of hallucinations or delusions. Reviewed patients mood tracker and the patient reported depressed mood, anxiety/panic attacks, aggravation/irritation/anger, self-harm urges, and risk/thoughts of suicide within patients normal base level.] Client Response/Progress/Benefit: [Patient was engaged and open to the discussion. Patient reported his mood being ?excited?.?The patients first win was that he dressed up as John for [employer] and helped his parents put up the [employer] tree. Patient was never allowed to celebrate holidays growing up, so this is a win because he and his parents enjoy doing this. The second win was that afterwards, he sat outside and watched the snow. The patient said his favorite season is winter and he loves the snow. The patient stated he did not have a stressor and has been enjoying himself. Patient was interactive and respectful with other group members about their mental wins and stressors. Patient benefited from the discussion by listening to feedback and giving input on his peer?s stressors and mental health wins. Patient will continue with IOP treatment to help develop healthy skills, promote mood stability, and improve distress tolerance. ] Narrative Note: []
--- NOTE | 2023-03-24 10:10 | BH.SGPN.GN ---
Behaviors/Verbalizations/Mental Status: [] Eye contact is good. Motor activity is appropriate. Appearance is casual. Speech is Appropriate. Mood is euthymic. Affect is full. Thoughts are linear and logical. No evidence of psychosis. Client Response/Progress/Benefit: [] Pt was an active participant in group discussions and experiential activity. Participated during interactive discussion in which group worked together to define resilience (i.e. continuing to bounce back from hardship; willingness to keep trying) and identify benefits of resilience. Participated during interactive discussion on if resilience is something we are born with or can learn. Provided appropriate thoughts and feedback. Able to relate the experiential activity back to topic of resilience. Worked well in small groups to identify strategies to build resilience. Benefited from increased awareness of the role of resilience in mental health and ways to build resilience. Will continue in IOP to prevent decompensation, increase healthy coping, and to stabilize mood. Narrative Note: []
--- NOTE | 2023-03-24 11:10 | BH.SGPN.GN ---
Behaviors/Verbalizations/Mental Status: []Pt alert and oriented, neatly dressed and groomed. Eye contact good. Motor activity appropriate. Speech within normal limits. Affect congruent, mood euthymic. Thoughts linear, logical, no signs of hallucinations or delusions. Client Response/Progress/Benefit: [] Pt responded well to session AEB completing the resilience worksheet provided. Pt actively participated in the discussion and worked cooperatively with group to identify strategies to enhance each of the components discussed. Pt reports belief they already use resilience traits of taking decisive action and he is getting better with nurturing a positive view of self. Pt shared ?being kinder to myself is very much new for me.? Pt discussed that they could work more on accepting that change is a part of living. Pt seemed to benefit from discussing strategies for improving personal resilience and identifying resilience traits Pt already possesses. Will continue IOP tx to reinforce healthy coping skills and establish aftercare. Narrative Note: []
--- NOTE | 2023-03-25 09:00 | BH.SGPN.GN ---
Behaviors/Verbalizations/Mental Status: [Patient was alert and oriented, appropriately dressed and groomed. Eye contact was poor, motor activity normal, speech within normal limits. Affect congruent, mood tired. Thoughts linear, logical, no signs of hallucinations or delusions. Reviewed Patients symptom tracker and the patient reports depressed mood, anxiety/panic attacks, aggravation/irritation/anger, self-harm urges, and risk/thoughts of suicide within patients normal base level.] Client Response/Progress/Benefit: [ Patient was engaged and open to the discussion. Patient reported his mood was ?excited?. ?The patients first win was that he helped his brother drive to work today. His brother has a permit and the patient allowed him to drive and he did well. The second win is that he is overall just feeling better. He stated that he has been using a lot of positive self-talk which use to be difficult for him. Patients stressor is knowing tomorrow is his last day and learning to accept and be okay with this. He stated he knows he?s ready but is still a little nervous. Patient was interactive and respectful with other group members about their mental wins and stressors. Patient benefited from the discussion by listening to his peer?s stressors and mental health wins. Patient will continue with IOP treatment to help develop healthy skills, promote mood stability, and improve distress tolerance. ] Narrative Note: []
--- NOTE | 2023-03-25 10:05 | BH.SGPN.GN ---
Behaviors/Verbalizations/Mental Status: [Patient was alert and oriented, casually dressed and groomed. Eye contact was good, motor activity normal, speech within normal limits. Affect congruent, mood content. Thoughts linear, logical, no signs of hallucinations or delusions. ] Client Response/Progress/Benefit: [Patient was engaged and open to the discussion and appeared to respond well to the group. Patient used active listening and gave feedback during group discussion. The patient stated he was very pessimistic because he was unhappy. He feels that he is more hopeful, and feels is much more open. Patient appeared to benefit from increasing awareness of different perspectives and how they can affect mental health. Patient will continue IOP treatment to improve daily functioning, emotion management, and prevent decompensation.] Narrative Note: []
--- NOTE | 2023-03-25 11:15 | BH.SGPN.GN ---
Behaviors/Verbalizations/Mental Status: []Pt alert and oriented, neatly dressed and groomed. Eye contact good. Motor activity appropriate. Speech within normal limits. Affect congruent, mood euthymic. Thoughts linear, logical, no signs of hallucinations or delusions. Client Response/Progress/Benefit: []Pt was attentive and contributed to small group discussion. Pt completed strengths exploration worksheet, identifying humor, open-mindedness, creativity, and empathy as personal strengths. Pt able to acknowledge how these strengths are helping pt and can continue to help pt in mental health journey. Pt worked with group to identify strategies that can help increase utilization of personal strengths and how to challenge one?s perspective in general. Pt identified wanting to work on being open-minded in all situations to help challenge perspective. Benefited from identifying personal strengths and strategies for enhancing use of identified strengths. Pt will continue IOP tx to promote gains, increase self-compassion, and reinforce healthy coping skills. Narrative Note: []
--- NOTE | 2023-03-25 15:24 | BH.MDN ---
Multi-Disciplinary Note Note 30-min Individual: Time Started:: 12:10 Date: 03/25/23 Purpose of session/treatment goals addressed:: To review pt progress, maintenance plan, and aftercare plan. Eye Contact:: Good Motor Activity:: Appropriate Appearance:: Neat Speech:: Appropriate Mood:: Euthymic Affect:: Full Thoughts:: Linear, Logical and No evidence of hallucinations/delusions noted Staff Interventions:: thought challenging, discharge planning, strengths perspective and other (Reviewed maintenance plan) Client Response:: Pt responded well to session, open to meeting with therapist as pt's usual therapist is out of the office. Pt's last day of IOP tx and pt reflected on his progress which pt identified as feeling more joyful, less negative self-talk, feeling more authentic, and increased ability to manage his symptoms. Pt stated his parents are over the britt with how much better pt has been functioning and feeling. Pt shared he is still experiencing anxiety and some sensory issues, but pt reports being more capable of managing his triggers and symptoms. Pt completed his maintenance plan which included triggers of sensory issues, knocking on doors, and looking back on the past. Pt's warning signs included withdrawing from support, increased negative thinking, and not giving himself any credit. Pt came up with numerous coping skills which included journaling his positives or shimmers, distractions, 5-senses, reframing, and baking. Pt is established with aftercare and will be seeing a provider at [facility] and pt will stick with his PCP for medication management. Pt unable to do IOP aftercare group because of work. Risks/Concerns:: No risk noted for SI, HI, or thoughts of . Progress Toward Goals/Plan:: Pt will discharge from IOP tx as he has accomplished his tx goals and no longer meets criteria for IOP level of care. Pt self-reports improved mood, less negative thinking patterns, improved daily functioning, and less isolation. Pt feels ready to return to work per his report and pt stated his family has acknowledged his progress. Pt will continue with outpatient counseling and see his PCP for medication management. Time Stopped:: 12:35
--- NOTE | 2023-03-26 09:00 | BH.SGPN.GN ---
Behaviors/Verbalizations/Mental Status: [Patient was alert and oriented, appropriately dressed and groomed. Eye contact was good, motor activity normal, speech within normal limits. Affect congruent, mood content. Thoughts linear, logical, no signs of hallucinations or delusions. Reviewed Patients symptom tracker and the patient reports depressed mood, anxiety/panic attacks, aggravation/irritation/anger, self-harm urges, and risk/thoughts of suicide within patients normal base level.] Client Response/Progress/Benefit: [ Patient was engaged and open to the discussion. Patient reported his mood to be ?all the things?. When prompted he said that since today was his last day, he felt a mixture of all kinds of emotions. Patients first win is that it is his last day which means he completed the program. The second win is that he is confident that he has the skills to be successful outside of group. The stressor is that he is leaving and says he will miss everyone and this routine. Patient was interactive and respectful with other group members about their mental wins and stressors. Patient benefited from the discussion by listening to feedback and giving input on his peer?s stressors and mental health wins. Patient will continue with IOP treatment to help develop healthy skills, promote mood stability, and improve distress tolerance. ] Narrative Note: []
--- NOTE | 2023-03-26 10:15 | BH.SGPN.GN ---
Behaviors/Verbalizations/Mental Status: []Pt alert and oriented, neatly dressed and groomed. Eye contact good. Motor activity appropriate. Speech within normal limits. Affect congruent, mood euthymic. Thoughts linear, logical, no signs of hallucinations or delusions. Client Response/Progress/Benefit: [] Pt was an active participant in activity and taking notes during group discussion. Attentive during psychoeducation on coping skills, why people use unhealthy coping skills, and how to replace unhealthy coping skills. Group came up with list of negative coping skills and pt identified several including isolating, over-eating, and avoiding. Group discussed the effects of how negative coping skills can impact mental health and reinforce negative thinking patterns. Participated in the group activity and made the connection that developing a strong base of healthy skills can help pt more effectively manage stressors. Benefited from increased understanding of unhealthy coping skills and the need for developing healthy internal and external coping skills. Pt will discharge from IOP tx today as pt has made significant progress and no longer meets criteria for IOP level of care. Narrative Note: []
--- NOTE | 2023-03-26 11:15 | BH.SGPN.GN ---
Behaviors/Verbalizations/Mental Status: []Pt alert and oriented, casually dressed and groomed. Eye contact good. Motor activity appropriate. Speech within normal limits. Affect congruent, mood euthymic and sad to leave. Thoughts linear, logical, no signs of hallucinations or delusions Client Response/Progress/Benefit: [] Pt responded well to session, taking notes and contributing. Group discussed the different categories of coping skills which included distraction, emotional release, grounding, self-love, and thought challenging.? Pt participated in creating a coping skills ?menu? from the five categories of coping skills. Pt's coping skill menu included: baking, video games, deep breathing, 5-senses, keeping track of wins, and reframing negative thoughts. Appeared to benefit from increasing repertoire of healthy coping skills. Will discharge from IOP tx as pt has accomplished his tx goals and no longer meets criteria for IOP level of care. ?? Narrative Note: []
--- NOTE | 2023-03-26 14:47 | BH.DS_ITS ---
Discharge Summary Demographics Date of Admission:: 02/10/23 Discharge Date: 03/26/23 Presenting Problems at Admission:: The patient is a 22-year-old single male with a history of depression, anxiety and sleep paralysis who was referred to the [facility] behavioral health IOP by his mother for worsening symptoms of depression and anxiety. Mom was present for his initial intake and stated that the family feels that the patient has high functioning au tism. The patient states that his mental health symptoms have worsened in the past several years and he feels he has really been depressed most of his life. His symptoms worsened when the family left their [employer] community which the patient feels is a [place] day [employer]. They were shunted when they left and so he no longer sees most of his father side of the family. Pt identifies traumatic memories from his time in [place]. Pt reported having a ?breakdown? two weeks ago where he felt despair and felt like he needed higher level of care due to having passive thoughts of . Currently seeking FMLA from work. The patient endorses sadness, crying spells, hopelessness, worthlessness, guilt, passive thoughts of , severe social anxiety, isolation, and constant worry. Discharge Diagnoses:: 1. Major depressive disorder, recurrent, severe without psychosis F33.2 2. Generalized anxiety disorder 3. Social anxiety disorder (F40.11) 4. Rule out high functioning pervasive development disorder 5. Primary support issues 6. Rule out alcohol use disorder (sober from alcohol for 2 weeks) Reason for Discharge:: Client has made significant treatment progress and no longer meets criteria for IOP level of care. Treatment Progress During Treatment & Response: Per DSM 5 cross-cutting measure at discharge his scores indicate a 100% decrease in depression, 67% reduction in anxiety, 80% reduction in unpleasant images and urges, and an overall 86% decrease in overall mental health symptoms when compared to intake DSM 5 cross- cutting scores. Client reports significant improvement of daily and work functioning. Client started to get back into activities he used to enjoy like writing, being around friends, and excitement about getting back into [employer]. Client reported his family and work co-workers have noted improvement in his demeanor and perspective. Client noted improvement in confidence and outlook on life. Client engaged in program AEB consistent attendance, providing contributions in group, and opening up in individual therapy. Issues Still to be Addressed:: Client could benefit from continued work on building confidence, challenging negative/distorted thinking, and decreasing anxiety in social situations. Discharge Recommendations/Instructions:: Client is recommended to continue seeing outpatient PCP for medication management. Client has appointment with Chico Kimbrough for individual counseling at [facility] on 04/01/23. Discharge Handout
--- NOTE | 2023-06-03 13:40 | BH.TPR ---
Treatment Plan Review Demographics Date of Admission:: 02/10/23 Date of Treatment Plan Review:: 03/03/23 Admitting Diagnoses:: 1. Major depressive disorder, recurrent, severe without psychosis F33.2 2. Generalized anxiety disorder 3. Social anxiety disorder (F40.11) 4. Rule out high functioning pervasive development disorder 5. Primary support issues 6. Rule out alcohol use disorder (sober from alcohol for 2 weeks) Current Diagnoses:: 1. Major depressive disorder, recurrent, severe without psychosis F33.2 2. Generalized anxiety disorder 3. Social anxiety disorder (F40.11) 4. Rule out high functioning pervasive development disorder 5. Primary support issues 6. Rule out alcohol use disorder (sober from alcohol for 2 weeks) Patient Status Patient's Response to Treatment:: Pt responding well to treatment AEB consistent attendance. Client engages in group therapy sessions and individual sessions. Does struggle with consistent follow through on homework. Status of Current Problems and Symptoms: Client reporting improved mood and ability to manage anxiety. Client still has days in which he reports down, depressed mood, but has been able to use skills to manage those moods more effectively. Client continues to report negative self-deprecating thoughts and is ready to start learning how to challenge negative thoughts to improve view of self. 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 Client is starting to note improvement in these areas, but ongoing work needed. Progress Problem #1: Problem Name:: Depression Status of Goals:: Obj 1 - met, ongoing work encouraged. Client can identify healthy coping skills like opposite action, changing environment, socializing, and engaging in hobbies. Client starting to show more utilization of this skills. Obj 2 - not met. First few weeks have been focused on building healthy coping skills and improving mood. Will start to focus more on identifying thought patterns that impact mood. Team Recommendations:: Team recommends continue current goals and objectives with greater focus on identifying distorted/negative thoughts and teaching client how to reframe/challenge thoughts on own. Recommended to continue to work with client on building confidence. Problem #2: Problem Name:: Anxiety Status of Goals:: obj 1 - not met. Client is able to identify calming skills like belly breathing, grounding, and meditation. Does struggle with consistent implementation of skills. Client's DSM 5 scores at review indicate a 33% decrease in anxiety. Continues to report mild anxious symptoms. Obj 2 - not met. client is starting to gain awareness of distorted thoughts, but needs to practice and learn how to challenge/reframe distortions independently. Team Recommendations:: Team recommends continue current goals and objectives with greater focus on identifying distorted/negative thoughts and teaching client how to reframe/challenge thoughts on own. Recommended to continue to work with client on building confidence.
== END 2023-03-29 06:57 | disposition home or self-care (01) ==
LOC: BHIOP 06:47
PROVIDERS: PCP Family Medicine; Visit Provider Psychiatry & Neurology Psychiatry
DX: F33.2 Major depressive disorder, recurrent severe without psychotic features (principal); F41.1 Generalized anxiety disorder; F40.11 Social phobia, generalized
CPT/HCPCS: S9480; 90832; 90853